=== PATIENT | female | born 1985 | race American Indian/Alaskan Native ===

== ENCOUNTER 2018-06-09 13:10 | Outpatient (CLI) | payer OTHER ==
[2018-06-09 13:18] LABS: Basophils % (Auto) 0.5 % (0.0-1.8); Eosinophils # (Auto) 0.1 K/mm3 (0.0-0.4); Eosinophils % (Auto) 1.1 % (0.0-4.3); Hematocrit 33.8 % (30.3-42.9); Hemoglobin 10.3 gm/dl (10.1-14.3); Lymphocytes # (Auto) 2.7 K/mm3 (1.2-5.4); Lymphocytes % (Auto) 40.9 % (13.4-35.0); Mean Corpuscular HGB Conc 31 % (30-34); Mean Corpuscular Volume 70 fl (79-97); Monocytes # (Auto) 0.6 K/mm3 (0.0-0.8); Monocytes % (Auto) 9.7 % (0.0-7.3); Platelet Count 208 K/mm3 (140-440); Red Blood Count 4.81 M/mm3 (3.65-5.03)
[2018-06-09 13:21] LABS: Red Cell Distribution Width 20.6 % (13.2-15.2)
== END 2018-06-09 13:11 | disposition home or self-care (01) ==
LOC: LABHHL 13:10
DX: D50.9 Iron deficiency anemia, unspecified (principal); Z90.49 Acquired absence of other specified parts of digestive tract; Z87.891 Personal history of nicotine dependence
CPT/HCPCS: 36415; 85025

== ENCOUNTER 2020-11-16 12:00 | Emergency (ER) | payer MEDICAID, OTHER ==
[2020-11-16 12:54] VITALS: BP 152/82
[2020-11-16 15:06] LABS: Basophils % (Auto) 0.5 % (0.0-1.8); Eosinophils % (Auto) 0.1 % (0.0-4.3); Hematocrit 36.1 % (30.3-42.9); Hemoglobin 11.1 gm/dl (10.1-14.3); Lymphocytes # (Auto) 0.5 K/mm3 (1.2-5.4); Lymphocytes % (Auto) 8.3 % (13.4-35.0); Mean Corpuscular HGB Conc 31 % (30-34); Mean Corpuscular Volume 82 fl (79-97); Monocytes # (Auto) 0.2 K/mm3 (0.0-0.8); Monocytes % (Auto) 2.4 % (0.0-7.3); Platelet Count 435 K/mm3 (140-440); Red Blood Count 4.42 M/mm3 (3.65-5.03)
[2020-11-16] MEDS ORDERED: diphenhydrAMINE 50 MG/ML VIAL IV ONE (15:25)
[2020-11-16] MEDS ORDERED: METOCLOPRAMIDE 10 MG/2 ML INJ IV ONE (15:25)
[2020-11-16] MEDS ORDERED: FAMOTIDINE 20 MG/2 ML INJ IV ONE (15:25)
--- NOTE | 2020-11-16 15:27 | Event Note ---
ED Screening Note Date of service: 11/16/20 Time: 15:26 ED Screening Note: Patient presents with complaints of generalized abdominal pain and nausea and vomiting today Patient refusing to allow me to palpate her abdomen History of bipolar disorder She states she took ecstasy yesterday Patient is very agitated This initial assessment/diagnostic orders/clinical plan/treatment(s) is/are subject to change based on patients health status, clinical progression and re- assessment by fellow clinical providers in the ED. Further treatment and workup at subsequent clinical providers discretion. Patient/guardian urged not to elope from the ED as their condition may be serious if not clinically assessed and managed. Initial orders include: Labs Meds
[2020-11-16 15:32] LABS: Alanine Aminotransferase 17 units/L (7-56); Albumin 5.5 g/dL (3.9-5); BUN/Creatinine Ratio 12; Blood Urea Nitrogen 6 mg/dL (7-17); Calcium 10.5 mg/dL (8.4-10.2); Hemolysis Index 24
[2020-11-16] MEDS ORDERED: SODIUM CHLORIDE 0.9% 1000 ML 1,000 ML IV ONE (16:09)
--- NOTE | 2020-11-16 17:18 | Emergency Department Report ---
ED N/V/D HPI - General Chief complaint: Abdominal Pain Stated complaint: ABD PAIN Time Seen by Provider: 11/16/20 14:36 Source: EMS Mode of arrival: Stretcher Limitations: Other (Patient cooperation, patient is responding in a very short manner, patient is reluctant to give information) - History of Present Illness Initial comments: 35-year-old -[place] female with past medical history of recurrent nausea and vomiting presents emerged department complaining of a 1 to 2-day history of nausea vomiting and abdominal pain stating she has had vomiting multiple times since yesterday. History is limited due to patient cooperation from what I could understand she reports no hemoptysis no hematemesis hematochezia does have back pain which she is feels is related to the Reglan that was was given to her while in the emergency department today she is requesting analgesic medications for her as her stomach only. MD complaint: nausea, vomiting, abdominal pain Associated Abdominal Pain: Yes Location: diffuse Severity: Unable to Determine Quality: other (Unable to determine) Consistency: other (Unable to determine) Improves with: other (Unable to determine but suspect pain medication withheld due to the patient's request) Worsens with: other (Unable to determine) Associated Symptoms: nausea/vomiting - Related Data Home Medications Medication Instructions Recorded Confirmed Last Taken Omeprazole [Prilosec] 40 mg PO QDAY 02/19/13 02/19/13 02/19/13 09:00 Previous Rx's Medication Instructions Recorded Last Taken Type Ondansetron [Zofran] 4 mg PO Q6HR PRN #5 tablet 02/19/13 02/19/13 09:00 Rx Potassium Chloride [K-Dur] 40 meq PO ONCE #2 tablet 06/11/13 Unknown Rx Dicyclomine [Bentyl] 20 mg PO QID PRN #20 tablet 08/09/13 Unknown Rx Prochlorperazine [Compazine] 10 mg PO Q6HR PRN #20 tablet 08/09/13 Unknown Rx Promethazine [Phenergan] 25 mg PO Q6H PRN #20 tablet 08/09/13 Unknown Rx Promethazine [Phenergan] 25 mg PO Q6H PRN #20 tablet 07/14/14 Unknown Rx Ondansetron [Zofran ODT TAB] 8 mg PO Q12HR #20 tab.rapdis 11/16/20 Unknown Rx traMADoL [Ultram] 50 mg PO Q6HR PRN #14 tablet 11/16/20 Unknown Rx Allergies Allergy/AdvReac Type Severity Reaction Status Date / Time aspirin Allergy Unknown Unknown Verified 11/16/20 13:01 metoclopramide HCl Allergy Vomiting Verified 08/09/13 04:19 [From Reglan] ED Review of Systems ROS: Stated complaint: ABD PAIN Other details as noted in HPI Comment: All other systems reviewed and negative ED Past Medical Hx - Past Medical History Previous Medical History?: Yes Hx Hypertension: No Hx Diabetes: No Hx Deep Vein Thrombosis: No Hx Renal Disease: No Hx Sickle Cell Disease: No Hx Seizures: No Hx Psychiatric Treatment: Yes (Bipolar disorder, ADHD - noncompliant with medication) Hx Asthma: No Hx HIV: No Additional medical history: gastroparesis - Surgical History Past Surgical History?: Yes Hx Cholecystectomy: Yes - Social History Smoking Status: Unknown if ever smoked - Medications Home Medications: Home Medications Medication Instructions Recorded Confirmed Last Taken Type Omeprazole [Prilosec] 40 mg PO QDAY 02/19/13 02/19/13 02/19/13 09:00 History Ondansetron [Zofran] 4 mg PO Q6HR PRN #5 tablet 02/19/13 02/19/13 09:00 Rx Potassium Chloride [K-Dur] 40 meq PO ONCE #2 tablet 06/11/13 Unknown Rx Dicyclomine [Bentyl] 20 mg PO QID PRN #20 tablet 08/09/13 Unknown Rx Prochlorperazine [Compazine] 10 mg PO Q6HR PRN #20 tablet 08/09/13 Unknown Rx Promethazine [Phenergan] 25 mg PO Q6H PRN #20 tablet 08/09/13 Unknown Rx Promethazine [Phenergan] 25 mg PO Q6H PRN #20 tablet 07/14/14 Unknown Rx Ondansetron [Zofran ODT TAB] 8 mg PO Q12HR #20 tab.rapdis 11/16/20 Unknown Rx traMADoL [Ultram] 50 mg PO Q6HR PRN #14 tablet 11/16/20 Unknown Rx ED Physical Exam - General Limitations: Other (Patient cooperation to limit a complete examination due to the lack of cooperation swelling coming to some of the requested testing and testing locations) General appearance: alert, in no apparent distress - Head Head exam: Present: atraumatic, normocephalic - Eye Eye exam: Present: normal appearance - ENT ENT exam: Present: mucous membranes moist, other (Voice appears normal while the patient was talking her mucous membranes did appear to be moist) - Neck Neck exam: Present: normal inspection, full ROM - Respiratory Respiratory exam: Absent: respiratory distress, accessory muscle use - Cardiovascular Cardiovascular Exam: Present: regular rate, normal rhythm. Absent: systolic murmur, diastolic murmur, rubs, gallop - GI/Abdominal GI/Abdominal exam: Present: normal bowel sounds, other (Most of the examination was reviewed with the patient refused to allow any contact with her abdomen) - Extremities Exam Extremities exam: Present: normal inspection - Back Exam Back exam: Present: other (Examination was refused patient refused to allow any contact with her back) - Neurological Exam Neurological exam: Present: alert, oriented X3 - Psychiatric Psychiatric exam: Present: normal affect, normal mood - Skin Skin exam: Present: warm, dry, intact, normal color. Absent: rash ED Course Vital Signs 11/16/20 11/16/20 12:50 15:22 Temperature 98.5 F Pulse Rate 60 Respiratory 16 Rate Blood Pressure 152/82 O2 Sat by Pulse 100 Oximetry ED Medical Decision Making - Lab Data Result diagrams: 11/16/20 14:17 11/16/20 14:17 - Medical Decision Making This patient presents with abdominal pain of unclear etiology. Their evaluation that we were able to perform has not identified a emergent etiology for the abdominal pain. Examination was very limited due to patient cooperation. Patient has maintained confrontation with most of the healthcare providers that she encountered today I did spend with 20 minutes trying to perform an examination on this patient with repeated conversations which resulted in no change in cooperation or behavior. specifically, given the limited but benign exam, relatively normal lab studies, and lack of significant risk factors, I have a very low suspicion for appendicitis, ischemic bowel, bowel perforation, or any other life threatening disease. I have discussed with the patient the level of uncertainty with undifferentiated abdominal pain and clearly explained the need for a detailed examination, follow-up as noted on the discharge instructions, or return to the Emergency Department immediately if the pain worsens, develops fever, persistent and uncontrollable vomiting, or for any new symptoms or concerns. I discussed with the patient that this presentation today for abdominal pain could represent a significant risk for an acute abdominal process. Although the tests in the ED were essentially normal, there is still a possibility of a process such as appendicitis, diverticulitis, cholecystitis, ulcer, early bowel obstruction, mesenteric ischemia, kidney stone, or even kidney infection which could subsequently cause disability or . Lipase was slightly elevated currently the patient showed no signs of any active while here in the emergency department for the 6 hours present. Further care was slowed due to the lack of cooperation with the previous provider, then and nursing staff which she had encountered. Based on my colleagues note the patient did take ecstasy on yesterday which started many of these symptoms however the patient did not respond when confirmation was attempted by this author The patient understands that they must return within 24 hours for a recheck or s ee their physician within 24 hours for re-exam due to the possibility of significant surgical or medical process. Critical care attestation.: If time is entered above; I have spent that time in minutes in the direct care of this critically ill patient, excluding procedure time. ED Disposition Clinical Impression: Abdominal pain, Nausea, Elevated lipase Disposition: TO HOME OR SELFCARE Is pt being admited?: No Does the pt Need Aspirin: No Condition: Stable Instructions: Abdominal Pain (ED), Nausea, Adult, Abdominal Pain, Adult, [id number] Additional Instructions: You have been evaluated emergency department today for abdominal pain. Your evaluation did not show evidence of any medical conditions requiring emergent intervention at this time. Your lipase was it was elevated but not to a significant degree significant pancreatitis does not appear to be present at this time please drink plenty of fluids. Please schedule an appointment with your primary care physician. Return to emergency department if you experience worsening uncontrolled pain, fevers of 100.4 or greater, recurrent vomiting, inability to tolerate food or fluids by mouth, bloody stools or vomit, black tarry stools, or any other concerning symptoms. Prescriptions: traMADoL [Ultram] 50 mg PO Q6HR PRN #14 tablet PRN Reason: Pain Ondansetron [Zofran ODT TAB] 8 mg PO Q12HR #20 tab.rapdis Referrals: PRIMARY CARE [Primary Care Provider] - 3-5 Days [facility] [Provider Group] - 3-5 Days
[2020-11-16] MEDS ORDERED: HYOSCYAMINE SUBL 0.125 MG TAB SL ONE (17:21)
== END 2020-11-16 19:32 | disposition home or self-care (01) ==
LOC: ED 12:00
DX: R11.2 Nausea with vomiting, unspecified (principal); R10.9 Unspecified abdominal pain; R74.8 Abnormal levels of other serum enzymes; F31.9 Bipolar disorder, unspecified; Z79.899 Other long term (current) drug therapy; Z88.6 Allergy status to analgesic agent; Z88.8 Allergy status to other drugs, medicaments and biological substances
CPT/HCPCS: 36415; 80053; 83690; 84702; 85025; 96374; 96375; 99284; J1200; J2765